=== PATIENT | female | born 1985 | race Caucasian/White ===

== ENCOUNTER 2016-09-30 12:02 | Emergency (ER) | payer OTHER ==
[2016-09-30 12:21] VITALS: BP 111/74; PULSE 71; RESP 16; TEMP 98.1; O2SAT 97
--- NOTE | 2016-09-30 13:18 | UCPHY ---
H & P Time Seen by Provider: 09/30/16 12:38 Patient Type: New HPI/ROS: CHIEF COMPLAINT: Right 5th digit injury HISTORY OF PRESENT ILLNESS: 31-year-old [id number] female complaining of acute right 5th proximal phalanx of the 5th digit injury when she slipped on ice last night. She is able to perform range of motion albeit with pain. Denies proximal injury. Denies wrist pain or injury. PHYSICAL EXAM (Prior to examination, patient consented to physical exam, hands were washed and my usual and customary physical exam procedures followed) 1) GENERAL: Well-developed, well-nourished, alert and oriented. Appears to be in no acute distress. 2) HEAD: Normocephalic 3) HEENT: sclera anicteric 4) LUNGS: Breathing comfortably. 5) SKIN: Intact. Mild ecchymosis. No signs of infection. Negative kanavel. 6) MUSCULOSKELETAL: no malrotation. Normal cascading of digit. Tender to palpation 5th digit proximal phalanx. 7) NEUROLOGIC: Full sensation Smoking Status: Never smoked Constitutional: Initial Vital Signs Temperature (C) 36.7 C 09/30/16 12:15 Heart Rate 71 09/30/16 12:15 Respiratory Rate 16 09/30/16 12:15 Blood Pressure 111/74 09/30/16 12:15 O2 Sat (%) 97 09/30/16 12:15 Allergies/Adverse Reactions: No Known Allergies Allergy (Unverified 09/30/16 12:21) Home Medications: Medication Instructions Recorded Bcp 09/30/16 ZYRTEC 09/30/16 oxyCODONE/APAP 5/325 [Percocet 1 tab PO Q6 #10 tab 09/30/16 5/325] MDM/Departure - MDM Diagnostics: Xray of the right hand interpreted by myself: Nondisplaced fracture proximal phalanx 5th digit. Procedures: Procedure: Fracture treatment. The patient had x-rays taken and I confirmed that the patient had a fractured proximal phalanx 5th digit ]. A madeline-tape and aluminum finger splint was applied by ER veterinary assistant technician. After application of the splint I returned and re- examined the patient. The splint was adequately immobilizing the joint and distal to the splint the patient's circulation and sensation were intact. Patient shows no signs of compartment syndrome. Was given orthopedic precautions. - Depart Clinical Impression: Finger fracture, right Instructions: Finger Fracture (ED) Additional Instructions: Return to the ER immediately if you experience discoloration, have worsening pain, numbness, tingling, or any other symptoms that concern you. If you received x-rays in the emergency department today, be advised, that ligamentous , tendon, muscular, and other non-bony injury cannot be fully ruled out. Try to keep your affected extremity elevated above the level of your chest, and keep cold packs on the affected area, for the next 48 hours. Stand Alone Forms: School Excuse Prescriptions: oxyCODONE/APAP 5/325 [Percocet 5/325] 1 tab PO Q6 #10 tab Referrals: Casa Whittington MD [Medical Doctor] - 1-2 days without fail (Dr. Casa Whittington is a hand surgeon) - PQRS PQRS Measurement: n/a
--- NOTE | 2016-09-30 13:56 | DX ---
Right Hand, Three Views History: Right hand injury with pain at fifth finger after a fall. Findings: There is an oblique fracture in the right fifth proximal phalanx beginning in the middiaphy sis and extending caudally to the radial sided metaphysis. No definite intraarticular extension is vi sualized. Associated soft tissue swelling. Impression: Nondisplaced right fifth proximal phalanx fracture, as above.
== END 2016-09-30 13:55 | disposition home or self-care (01) ==
LOC: CED 12:02
DX: S62.646A Nondisplaced fracture of proximal phalanx of right little finger, initial encounter for closed fracture (principal); W00.0XXA Fall on same level due to ice and snow, initial encounter
CPT/HCPCS: 73130-PO; G0463-PO